=== PATIENT | male | born 1980 | race Two or more races ===

== ENCOUNTER 2017-09-30 20:29 | Inpatient (IN) ==
[2017-09-30] MEDS ORDERED: ALUM/MAG/SIMETH/LIDO VISC 1:1 30 ML BOTTLE PO STA (20:54)
[2017-09-30] MEDS ORDERED: PANTOPRAZOLE 40 MG VIAL IV STA (20:54)
[2017-09-30] MEDS ORDERED: ONDANSETRON 4 MG/2 ML VIAL IV STA (20:54)
[2017-09-30] MEDS ORDERED: SODIUM CHLORIDE 0.9% 1,000 ML IV STA (20:54)
[2017-09-30] MEDS ORDERED: HYDROmorphone 2 MG/1 ML VIAL IV STA (20:54)
[2017-09-30] MEDS ORDERED: DICYCLOMINE 20 MG TABLET PO STA (20:55)
[2017-09-30 21:00] LABS: Basophils % 0.3 % (0.0-0.8); Eosinophils # 0.1 10*3/uL (0.0-0.87); Eosinophils % 1.1 % (0.00-10.9); Hematocrit 36.1 VOL% (42.0-52.0); Hemoglobin 13.3 GM/DL (14.0-18.0); Immature Granulocytes % 0.2 %; Immature Granulocytes Absolute 0.02 #; Lymphocytes # 1.4 10*3/uL (1.4-4.0); Mean Corpuscular HGB Conc 36.8 GM/DL (32-36); Mean Corpuscular Hemoglobin 32 PG (27-34); Mean Corpuscular Volume 86.8 FL (87-102); Mean Platelet Volume 11.9 FL (9.6-12.0); Monocytes # 0.5 10*3/uL (0.11-0.8); Monocytes % 5.1 % (1.7-12.7); Neutrophils # 7.1 10*3/uL (1.4-7.4); Neutrophils % 78.3 % (38.7-73.9); Platelet Count 237 T/CUMM (130-400); Red Blood Count 4.16 MC/CUMM (3.8-5.5); Red Cell Distribution Width 12.3 % (9.3-17.3)
[2017-09-30] MEDS ORDERED: PANTOPRAZOLE 40 MG VIAL IV ONE (21:00)
[2017-09-30] MEDS ORDERED: DICYCLOMINE 20 MG TABLET ONE (21:01)
[2017-09-30] MEDS ORDERED: ONDANSETRON 4 MG/2 ML VIAL ONE (21:01)
[2017-09-30] MEDS ORDERED: HYDROmorphone 2 MG/1 ML VIAL ONE (21:01)
[2017-09-30] MEDS ORDERED: ALUM/MAG/SIMETH/LIDO VISC 1:1 30 ML BOTTLE PO ONE (21:01)
[2017-09-30 21:23] LABS: Lactic Acid 2.5 MMOL/L (0.4-2.0)
[2017-09-30 21:24] LABS: Alanine Aminotransferase 68 U/L (16-61); Albumin 4.4 G/DL (3.4-5.0); Alkaline Phosphatase 67 U/L (45-117); Amylase 32 U/L (25-115); Aspartate Amino Transferase 33 U/L (0-37); Blood Urea Nitrogen 13 MG/DL (7-18); Calcium 8.8 MG/DL (8.5-10.1); Glucose 119 MG/DL (74-106); Osmolality,Calculated 281.3 MOS/KG (273-304); Potassium 3.9 MMOL/L (3.5-5.1); Sodium 141 MMOL/L (136-145); Total Protein 7.4 G/DL (6.4-8.3); Troponin I Only < 0.015 NG/ML (0.00-0.045)
[2017-09-30] MEDS ORDERED: SODIUM CHLORIDE 0.9% 2,450 ML IV ONE (21:25)
[2017-09-30] MEDS ORDERED: SODIUM CHLORIDE 0.9% 1,000 ML IV SCH (21:30)
[2017-09-30 21:35] LABS: PT Patient Result 10.4 SECS; Partial Thromboplastin Time 27.6 SECS (0-40)
[2017-10-01] MEDS ORDERED: ONDANSETRON 4 MG/2 ML VIAL IV PRN (00:57)
[2017-10-01] MEDS ORDERED: HYDROmorphone 2 MG/1 ML VIAL IV PRN (00:57)
[2017-10-01] MEDS ORDERED: ACETAMINOPHEN 325 MG TABLET PO PRN (00:57)
[2017-10-01 01:19] LABS: Basophils % 0.2 % (0.0-0.8); Eosinophils # 0.1 10*3/uL (0.0-0.87); Eosinophils % 1.2 % (0.00-10.9); Hemoglobin 13.7 GM/DL (14.0-18.0); Immature Granulocytes % 0.4 %; Immature Granulocytes Absolute 0.03 #; Lymphocytes # 1.7 10*3/uL (1.4-4.0); Mean Corpuscular HGB Conc 36.1 GM/DL (32-36); Mean Corpuscular Hemoglobin 31 PG (27-34); Mean Corpuscular Volume 87.2 FL (87-102); Monocytes # 0.6 10*3/uL (0.11-0.8); Neutrophils % 71.2 % (38.7-73.9); Platelet Count 260 T/CUMM (130-400); Red Blood Count 4.36 MC/CUMM (3.8-5.5); Red Cell Distribution Width 12.4 % (9.3-17.3); White Blood Count 8.4 T/CUMM (4-12)
[2017-10-01] MEDS: LACTATED RINGERS 1,000 ML IV SCH ×2 (01:34→20:24)
[2017-10-01] MEDS: PIPERACILLIN/TAZOBACTAM 3,375 MG in SODIUM CHLORIDE 0.9% 100 ML IV SCH ×3 (01:35→15:55)
[2017-10-01 01:40] LABS: Apearance,Urine CLEAR (Clear); Bilirubin,Urine Negative (Negative); Blood, Urine Negative (Negative); Glucose,Urine (UA) Negative (Negative); Hyaline Casts,Urine 4 /LPF (0-3); Ketones,Urine Negative (Negative); Mucus,Urine Occasional /LPF (Occasional); Nitrite,Urine Negative (Negative); Protein,Urine Negative; Urine Color Yellow (Yellow); Urine Specific Gravity 1.018 (1.001-1.035); Urine Urobilinogen < 2.0 EU/DL (0.2-1.0); WBC,Urine <1 /HPF (0-6)
[2017-10-01 01:43] LABS: Barbiturates Screen,Urine Negative (Negative); Benzodiazepines Screen,Urine Negative (Negative); Cannabinoid Screen,Urine Negative (Negative); Opiate Screen,Urine Positive (Negative); Phencyclidine Screen,Urine Negative (Negative)
[2017-10-01 01:50] LABS: Albumin 4.2 G/DL (3.4-5.0); Bilirubin,Total 1.3 MG/DL (0.2-1.0); Calcium 8.6 MG/DL (8.5-10.1); Osmolality,Calculated 280.3 MOS/KG (273-304); Potassium 3.7 MMOL/L (3.5-5.1); Total Protein 7.4 G/DL (6.4-8.3)
[2017-10-01] MEDS: metroNIDAZOLE INJ 500 MG in PREMIX 1 EACH IV SCH ×3 (04:51→21:13)
[2017-10-01] MEDS: LEVOTHYROXINE 100 MCG TABLET PO SCH (07:40)
[2017-10-01] MEDS ORDERED: cefOXitin 2,000 MG in SYRINGE 1 EACH IV ONE (09:00)
[2017-10-01] MEDS ORDERED: TISSUE ADHESIVE 1 EACH APPLICATOR TOP ONE (09:42)
[2017-10-01] MEDS ORDERED: LIDOCAINE 2%/EPI 20 ML VIAL ONE (10:19)
[2017-10-01] MEDS: PANTOPRAZOLE 40 MG VIAL IV SCH (11:10)
[2017-10-01] MEDS: FENOFIBRATE 48 MG TABLET PO SCH (11:10)
[2017-10-01] MEDS ORDERED: SEVOFLURANE 1 UNIT/15 MINUTE INH ONE (11:13)
[2017-10-01] MEDS ORDERED: ONDANSETRON 4 MG/2 ML VIAL ONE (11:14)
[2017-10-01] MEDS ORDERED: MIDAZOLAM 2 MG/2 ML VIAL ONE (11:14)
[2017-10-01] MEDS ORDERED: ROCURONIUM 100 MG/10 ML VIAL IV ONE (11:15)
[2017-10-01] MEDS ORDERED: NEOSTIGMINE 10 MG/10 ML VIAL ONE (11:15)
[2017-10-01] MEDS ORDERED: HYDROmorphone 2 MG/1 ML VIAL ONE (11:15)
[2017-10-01] MEDS ORDERED: GLYCOPYRROLATE 0.4 MG/2 ML VIAL ONE (11:15)
[2017-10-01] MEDS ORDERED: PROPOFOL 200 MG/20 ML VIAL IV ONE (11:15)
[2017-10-01] MEDS ORDERED: fentaNYL 100 MCG/2 ML VIAL ONE (11:15)
[2017-10-01] MEDS ORDERED: ENOXAPARIN 40 MG/0.4 ML SYRINGE SUBCUT SCH (16:00)
[2017-10-01] MEDS ORDERED: SIMVASTATIN 20 MG TABLET PO SCH (21:00)
[2017-10-02] MEDS: LACTATED RINGERS 1,000 ML IV SCH ×2 (00:37→16:08)
[2017-10-02] MEDS: metroNIDAZOLE INJ 500 MG in PREMIX 1 EACH IV SCH ×2 (04:00→16:07)
[2017-10-02] MEDS: PIPERACILLIN/TAZOBACTAM 3,375 MG in SODIUM CHLORIDE 0.9% 100 ML IV SCH ×2 (05:15→16:06)
[2017-10-02] MEDS: LEVOTHYROXINE 100 MCG TABLET PO SCH (06:21)
[2017-10-02] MEDS: FENOFIBRATE 48 MG TABLET PO SCH (10:24)
[2017-10-02] MEDS: PANTOPRAZOLE 40 MG VIAL IV SCH (10:24)
[2017-10-02 17:40] VITALS: BP 105/69
== END 2017-10-02 18:35 | disposition home or self-care (01) | DRG 419 ==
LOC: N.ED 20:29 → N.EDINP 22:25 → N.3E 22:57
PROVIDERS: ADMIT Surgery; ATTEND Surgery
PROC: LAPCHOL (2017-10-01 10:01)